=== PATIENT | female | born 1955 | race Caucasian/White ===

== ENCOUNTER 2019-10-28 13:52 | Outpatient (CLI) | payer BC ==
--- NOTE | 2019-10-28 15:13 | BD ---
BONE DENSITOMETRY USING DEXA: HISTORY: Osteoporosis. FINDINGS LUMBAR SPINE BMD (g/cm2) T-SCORE Z-SCORE L1 0.815 -1.6 -0.2 L2 0.717 -2.8 -1.3 L3 0.667 -3.8 -2.2 L4 0.735 -3.0 -1.3 TOTAL 0.734 -2.8 -1.3 BMD (g/cm2) T-SCORE Z-SCORE NECK 0.713 -1.2 0.2 TOTAL 0.879 -0.5 0.6 IMPRESSION: Osteoporosis. POS: [facility]
--- NOTE | 2019-10-28 16:18 | MMO ---
Bilateral MAMMO Bilat Screen [facility]. CLINICAL HISTORY: Patient is 64 years old and is seen for screening. The patient has no family history of breast cancer. The patient has no personal history of cancer. The patient has a history of bilateral Implants at age 50. VIEWS: The views performed were: bilateral craniocaudal with tomosynthesis and bilateral mediolateral oblique with tomosynthesis. FILMS COMPARED: The present examination has been compared to prior imaging studies performed at [facility] on 01/02/2016 and 05/26/2017, and at [facility] [place] on 05/22/2015 and 05/30/2015. This study has been interpreted with the assistance of computer-aided detection. MAMMOGRAM FINDINGS: There are scattered fibroglandular densities. Finding 1: There are stable benign appearing calcifications seen in both breasts. Finding 2: Normal implants are present. There are no suspicious masses, suspicious calcifications, or new areas of architectural distortion. IMPRESSION: THERE IS NO MAMMOGRAPHIC EVIDENCE OF MALIGNANCY. A ROUTINE FOLLOW-UP MAMMOGRAM IN 1 YEAR IS RECOMMENDED. THE RESULTS OF THIS EXAM WERE SENT TO THE PATIENT. ACR BI-RADS Category 2 - Benign finding MAMMOGRAPHY NOTE: 1. A negative mammogram report should not delay a biopsy if a dominant of clinically suspicious mass is present. 2. Approximately 10% to 15% of breast cancers are not detected by mammography. 3. Adenosis and dense breasts may obscure an underlying neoplasm. Reported by: ANGELA MARTINEZ MD Electonically Signed: [id number]
== END 2019-10-28 13:53 | disposition home or self-care (01) ==
LOC: BICMAMMO 13:52
PROVIDERS: ATTEND Obstetrics & Gynecology
DX: Z12.31 Encounter for screening mammogram for malignant neoplasm of breast (principal); Z13.820 Encounter for screening for osteoporosis; M81.0 Age-related osteoporosis without current pathological fracture; Z98.82 Breast implant status
CPT/HCPCS: 77063; 77067; 77080

== ENCOUNTER 2021-05-25 14:57 | Outpatient (CLI) | payer BC | END 2021-05-25 14:58 | disposition home or self-care (01) | LOC: BICMAMMO 14:57 | PROVIDERS: ATTEND Obstetrics & Gynecology | DX: Z12.31 Encounter for screening mammogram for malignant neoplasm of breast (principal); Z98.82 Breast implant status | CPT/HCPCS: 77063; 77067 ==